=== PATIENT | male | born 1955 | race Caucasian/White ===

== ENCOUNTER 2023-09-18 09:32 | Outpatient (AMB) | payer BC, SELFPAY ==
--- NOTE | 2023-09-18 09:36 | A.OFFVIS_ITS ---
Intake Vital Signs 09/18/23 09:40 Height 5 ft 8 in Weight 295 lb BMI 44.8 BP 160/92 H Blood Pressure Location Lt brachial Position Sitting Pulse 91 Pulse Source Pulse Oximeter Pulse Oximetry (%) 97 Oxygen Delivery Method Room Air Intake Visit Reasons: ENP-Chronic Insomnia - Conf through CW Intake Note: NPV for Insomnia [employer] Project [employer] Required: No Allergies No Known Allergies Allergy (Verified 09/18/23 09:37) HPI HPI Comments History of Present Illness Details 68 y/o male patient presents for new in- person visit for sleep consultation. Pt reports difficulty falling asleep and staying sleep. He had prostate abscess, and had procedure done about an year ago. He had frequent urination at that time, it is mostly resolved after the procedure, but he still wakes up frequently in the middle of night and having difficulty go back to sleep. He has frequent arousals, every 2-3 hrs. He is having vivid dreams, if he has vivid dreams, harder to go back to sleep. Pt reports daytime sleepiness and tiredness. He takes 20 min nap, 2-3 times every day. He gained 8-10 lb over the last 5 months. Sleep questionnaire: Have you ever been diagnosed with a sleep disorder? No. Have you ever had a sleep study in the past? No. Have you ever been treated for a sleep disorder? No. Do you take medications for a sleep disorder? Tried melatonin, and CBD gummies but nothing helped. Do you snore? Yes. Do you wake up gasping at night? No. Do you have episodes of apneas? Don't know. If yes, are they witnessed? Sleeps alone. Do you have episodes of nocturnal chest pain or dyspnea? No. Do you have difficulty initiating sleep? Yes. Do you have difficulty maintaining sleep? Yes. Do you wake up tired? Yes. Do you have headaches upon awakening? No. Do you wake up with dry mouth or throat? Not really. Do you have GERD? Yes. Do you have nocturia? Yes. Do you have nocturnal leg cramps? No. Do you have symptoms of restless legs? No. Do you act out your dreams? No. Sleep hygiene questionnaire: What is your usual sleep routine? Usual bedtime is at 2 am; Usual wake up time is at 9:30 to 10:30. Do you take naps? Yes. Is your sleep environment cool, dark, and quiet? Yes. Do you exercise? No. Do you take caffeine or other stimulants? Two cups of morning, and one cup in the evening. Do you use electronics in bed? Yes. What is your work schedule? Retired. Hypersomnolence questionnaire: Do you have daytime tiredness or fatigue? Yes. Do you easily fall asleep when inactive? Yes. Have you ever had episodes of sudden weakness? No. Have you ever had episodes of sudden weakness associated with strong emotions? No. PFSH Surgical History (Updated 09/18/23 @ 09:39 by Jeanette Villarreal CMA) History of prostate surgery Family History (Updated 09/18/23 @ 09:40 by Jeanette Villarreal CMA) Family/Other Diabetes Social History (Updated 09/18/23 @ 09:40 by Jeanette Villarreal CMA) Alcohol intake: current Alcohol intake frequency: holidays/special occasions only Patient Tobacco Use Status: Never used Tobacco Review of Systems Const All systems reviewed & are unremarkable except as noted in HPI and below ENT Reports Normal hearing present Neuro Reports Normal hearing present Physical Exam Vital Signs: Last Vital Signs Pulse 91 09/18/23 09:40 BP 160/92 H 09/18/23 09:40 Pulse Ox 97 09/18/23 09:40 Oxygen Delivery Method Room Air 09/18/23 09:40 BMI result Body Mass Index 44.8 Const General: comfortable and tired appearing Nutritional Appearance: obese Orientation/consciousness: patient oriented x3 Neck Neck: Yes full ROM and Yes supple Resp Effort & Inspection: normal respiratory effort and able to speak in complete sentences Neuro General: patient oriented x3 Cranial nerves: Yes Bilaterally intact EOM present, Yes Normal facial strength present, Yes Midline tongue present, Yes Symmetric palate elevation present, Yes Normal hearing present, Yes Ability to bilaterally rotate head present and Yes Ability to bilaterally elevate shoulders present Cognition (Neuro): normal cognition Gait exam (Neuro): Antalgic gait present Motor exam (neuro): 5/5 motor strength present throughout, Pronator motor function not present and no tremor noted Psych Appearance: grossly normal Mental Status: mental status grossly normal Speech and movement: Normal speech and movement present Affect: normal affect Attitude: cooperative Assessment & Plan Assessment & Plan (1) Vivid dream: Code(s): R68.89 - Other general symptoms and signs (2) Daytime sleepiness: Code(s): R40.0 - Somnolence (3) Snoring: Code(s): R06.83 - Snoring Plan Pt is advised to undergo in lab sleep study to assess for sleep apnea, PLMD and REM behavior. Will f/u with pt after study to discuss results and appropriate treatment options. Sleep hygiene education provided. Advised patient to limit caffeine intake in the evening and electronic use. Advised patient to do daily exercise. Advised patient to try magnesium supplement for sleep. Pt to call with any worsening concerns or questions. Orders: Orders RT PSG in-lab sleep study Today E11.9 - Type 2 diabetes mellitus without complications, E66.01 - Morbid (severe) obesity due to excess calories, R06.83 - Snoring, R35.1 - Nocturia, R40.0 - Somnolence, R68.89 - Other general symptoms and signs Coding Level of Care Code New Pt Level 4 (34175) Diagnoses Vivid dream R68.89 Daytime sleepiness R40.0 Snoring R06.83
[2023-09-18 09:40] VITALS: BP 160/92; PULSE 91; O2SAT 97; BMI 44.8
== END 2023-09-18 10:19 | disposition home or self-care (01) ==
PROVIDERS: PCP Internal Medicine; Visit Provider Nurse Practitioner Family
DX: R68.89 Other general symptoms and signs (principal); R40.0 Somnolence; R06.83 Snoring
CPT/HCPCS: 99204

== ENCOUNTER → 2023-09-18 09:32 | Outpatient (BNVA) | payer BC, SELFPAY | PROVIDERS: PCP Internal Medicine; Visit Provider Nurse Practitioner Family ==

== ENCOUNTER → 2023-10-22 19:40 | Outpatient (REF) | payer BC, SELFPAY | LOC: HO.SL 19:40 | PROVIDERS: PCP Internal Medicine; Visit Provider Nurse Practitioner Family | DX: Z13.89 Encounter for screening for other disorder (principal) ==